=== PATIENT | female | born 1990 | race Caucasian/White ===

== ENCOUNTER 2021-10-14 12:54 | Emergency (ER) | payer OTHER ==
[~2021-10-14] VITALS: Ht 170.2 cm; Wt 81.8 kg
[2021-10-14] MEDS ORDERED: VENL25TA47 PO (13:08)
[2021-10-14] MEDS ORDERED: HYDR-3831 PO (13:08)
[2021-10-14] MEDS ORDERED: SODIUM CHLORIDE 0.9% 1,000 ML IV ONE (13:30)
[2021-10-14] MEDS ORDERED: HYDROmorphone 2 MG/ML VIAL IVP ONE ×2 (13:45→15:00)
[2021-10-14] MEDS ORDERED: METOCLOPRAMIDE HCL 5 MG/ML 2 ML VIAL IVP ONE (13:45)
[2021-10-14 13:50] LABS: ANION GAP 6 mmol/L (8-16); CALCIUM, TOTAL 9.1 mg/dL (8.8-10.5); CARBON DIOXIDE 30 mmol/L (22-29); CHLORIDE 104 mmol/L (98-107); GLUCOSE,RANDOM 140 mg/dL (70-110); POTASSIUM 4.1 mmol/L (3.5-5.1); SODIUM SERUM 140 mmol/L (136-145); UREA NITROGEN, BLOOD 10 mg/dL (7-18)
[2021-10-14 13:52] LABS: GLOMERULAR FILTR. RATE CALC > 60 mL/min (>60)
[2021-10-14 13:54] LABS: BASOPHILS % (AUTO) 0.3 % (0.0-2.0); EOSINOPHILS % (AUTO) 1.4 % (1.0-6.0); HEMATOCRIT 34.5 % (36-46); HEMOGLOBIN 11.7 g/dL (12.0-16.0); LYMPHOCYTES # (AUTO) 2.1 K/uL (1.0-4.8); MEAN CORPUSCULAR HEMOGLOBIN 28.4 pg (26.0-34.0); MEAN CORPUSCULAR HGB CONC 33.9 G/dL (31.0-37.0); MEAN CORPUSCULAR VOLUME 84 fL (80-100); MONOCYTES # (AUTO) 0.3 K/uL (0.1-1.0); MONOCYTES % (AUTO) 4.6 % (2.0-9.0); NEUTROPHILS # (AUTO) 4.1 K/uL (1.8-7.7); NEUTROPHILS % (AUTO) 61.7 % (40.0-70.0); PLATELET COUNT (AUTO) 300 K/uL (150-450); RED BLOOD CELL COUNT(AUTO) 4.12 MIL/uL (4.00-5.20); RED CELL DISTRIBUTION WIDTH 14.2 % (11.5-14.5)
[2021-10-14 14:03] LABS: ALANINE AMINOTRANSFERASE 25 U/L (12-78); ALBUMIN 3.6 g/dL (3.4-5.0); ALKALINE PHOSPHATASE 71 U/L (46-116); ASPARTATE AMINOTRANSFERASE 16 U/L (15-37); BILIRUBIN,TOTAL 0.4 mg/dL (0.1-1.0); HCG,QUANTITATIVE < 1 mIU/mL (0-6); LIPASE 73 U/L (73-393); TOTAL PROTEIN, SERUM 7.3 g/dL (6.4-8.2)
[2021-10-14] MEDS ORDERED: IOHEXOL 350 MG/ML 100 ML VIAL ONE (14:29)
[2021-10-14] MEDS ORDERED: SODIUM CHLORIDE 0.9% 100 ML ONE (14:30)
[2021-10-14 14:45] LABS: APPEARANCE,URINE CLEAR (CLEAR); BILIRUBIN,URINE NEGATIVE (NEGATIVE); GLUCOSE, URINE (UA) TRACE mg/dL (NEGATIVE); KETONES,URINE NEGATIVE (NEGATIVE); LEUKOCYTE ESTERASE ,URINE SMALL (NEGATIVE); NITRATE,URINE NEGATIVE (NEGATIVE); OCCULT BLOOD,URINE NEGATIVE (NEGATIVE); PH,URINE 5.5 (5.0-8.0); PROTEIN,URINE NEGATIVE (NEGATIVE); SPECIFIC GRAVITIY, URINE 1.013 (1.003-1.030); UROBILINOGEN,URINE <=1.0 mg/dL (<=1.0)
[2021-10-14 14:58] LABS: BACTERIA,URINE None Seen /HPF (None Seen); RBC,URINE None Seen /HPF (0-2); SQUAMOUS EPITHELIAL CELL,UR Few /LPF (None Seen); WBC,URINE 0-2 /HPF (0-5)
[2021-10-14 15:00] VITALS: BP 123/70
[2021-10-14] MEDS ORDERED: DICY20TA95 PO (16:30)
[2021-10-14] MEDS ORDERED: TRAM50TA2 PO (16:31)
== END 2021-10-14 16:53 | disposition home or self-care (01) ==
LOC: EMS 12:57
DX: E86.0 Dehydration (principal); R10.13 Epigastric pain; F41.9 Anxiety disorder, unspecified; F32.9 Major depressive disorder, single episode, unspecified; Z79.899 Other long term (current) drug therapy
CPT/HCPCS: 99285; 74177; 96374; 96361; 96375; 80053; 81001; 83690; 84702; 85025; 36415; 93005; 96376; J1170; J2765; Q9967; J7050

== ENCOUNTER 2021-10-25 17:43 | Emergency (ER) | payer OTHER ==
[~2021-10-25] VITALS: Ht 170.2 cm; Wt 81.8 kg
[~2021-10-25 17:43] MED LIST: DICY20TA95 PO; HYDR-3831 PO; TRAM50TA2 PO; VENL25TA47 PO
[2021-10-25] MEDS ORDERED: SODIUM CHLORIDE 0.9% 1,000 ML IV ONE (19:15)
[2021-10-25] MEDS ORDERED: KETOROLAC TROMETHAMINE 30 MG/ML VIAL IVP ONE (19:15)
[2021-10-25] MEDS ORDERED: ONDANSETRON HCL 4 MG/2 ML VIAL IVP ONE (19:15)
[2021-10-25 19:36] LABS: BASOPHILS % (AUTO) 0.3 % (0.0-2.0); EOSINOPHILS % (AUTO) 3.1 % (1.0-6.0); HEMATOCRIT 33.2 % (36-46); LYMPHOCYTES # (AUTO) 2.6 K/uL (1.0-4.8); LYMPHOCYTES % (AUTO) 32.1 % (22.0-44.0); MEAN CORPUSCULAR HGB CONC 33.1 G/dL (31.0-37.0); MEAN CORPUSCULAR VOLUME 85 fL (80-100); MONOCYTES # (AUTO) 0.5 K/uL (0.1-1.0); MONOCYTES % (AUTO) 5.8 % (2.0-9.0); NEUTROPHILS # (AUTO) 4.8 K/uL (1.8-7.7); NEUTROPHILS % (AUTO) 58.7 % (40.0-70.0); PLATELET COUNT (AUTO) 281 K/uL (150-450); RED BLOOD CELL COUNT(AUTO) 3.92 MIL/uL (4.00-5.20); RED CELL DISTRIBUTION WIDTH 14.4 % (11.5-14.5)
[2021-10-25 20:29] LABS: ANION GAP 9 mmol/L (8-16); CARBON DIOXIDE 25 mmol/L (22-29); CHLORIDE 104 mmol/L (98-107); CREATININE 0.83 mg/dL (0.60-1.30); GLUCOSE,RANDOM 107 mg/dL (70-110); POTASSIUM 4.7 mmol/L (3.5-5.1); SODIUM SERUM 138 mmol/L (136-145); UREA NITROGEN, BLOOD 18 mg/dL (7-18)
[2021-10-25 20:30] LABS: CALCIUM, TOTAL 8.8 mg/dL (8.8-10.5); GLOMERULAR FILTR. RATE CALC > 60 mL/min (>60)
[2021-10-25] MEDS ORDERED: MORPHINE SULFATE 2 MG/ML SYRINGE IVP ONE (20:30)
[2021-10-25 20:40] LABS: ALANINE AMINOTRANSFERASE 36 U/L (12-78); ALBUMIN 3.7 g/dL (3.4-5.0); ALKALINE PHOSPHATASE 69 U/L (46-116); ASPARTATE AMINOTRANSFERASE 35 U/L (15-37); BILIRUBIN,TOTAL 0.2 mg/dL (0.1-1.0); HCG,QUANTITATIVE < 1 mIU/mL (0-6); LIPASE 94 U/L (73-393); TOTAL PROTEIN, SERUM 7.5 g/dL (6.4-8.2)
[2021-10-25 21:01] VITALS: BP 133/68
== END 2021-10-25 21:10 | disposition home or self-care (01) ==
LOC: EMS 17:43
DX: G89.29 Other chronic pain (principal); R10.13 Epigastric pain; F32.9 Major depressive disorder, single episode, unspecified; F41.9 Anxiety disorder, unspecified; Z79.899 Other long term (current) drug therapy
CPT/HCPCS: 99284; 96374; 96375; 96361; 80053; 83690; 84702; 85025; 36415; J1885; J2270; J2405; J7030

== ENCOUNTER 2022-05-31 19:57 | Emergency (ER) | payer OTHER ==
[~2022-05-31] VITALS: Ht 170.2 cm; Wt 81.0 kg
[~2022-05-31 19:57] MED LIST changes: -DICY20TA95 PO; -TRAM50TA2 PO
[2022-05-31 20:07] VITALS: BP 122/79
[2022-05-31] MEDS ORDERED: VENL-68 PO (20:11)
[2022-05-31] MEDS ORDERED: VENL-67 PO (20:11)
[2022-05-31 20:29] LABS: BASOPHILS % (AUTO) 0.3 % (0.0-2.0); EOSINOPHILS % (AUTO) 1.7 % (1.0-6.0); HEMATOCRIT 32.9 % (36-46); HEMOGLOBIN 10.9 g/dL (12.0-16.0); LYMPHOCYTES # (AUTO) 2.3 K/uL (1.0-4.8); LYMPHOCYTES % (AUTO) 26.9 % (22.0-44.0); MEAN CORPUSCULAR HEMOGLOBIN 26.9 pg (26.0-34.0); MEAN CORPUSCULAR VOLUME 82 fL (80-100); MONOCYTES # (AUTO) 0.5 K/uL (0.1-1.0); NEUTROPHILS # (AUTO) 5.5 K/uL (1.8-7.7); NEUTROPHILS % (AUTO) 65.1 % (40.0-70.0); PLATELET COUNT (AUTO) 291 K/uL (150-450); RED BLOOD CELL COUNT(AUTO) 4.04 MIL/uL (4.00-5.20); RED CELL DISTRIBUTION WIDTH 15.3 % (11.5-14.5)
[2022-05-31 20:39] LABS: ANION GAP 7 mmol/L (8-16); CALCIUM, TOTAL 9.4 mg/dL (8.8-10.5); CARBON DIOXIDE 29 mmol/L (22-29); CHLORIDE 104 mmol/L (98-107); CREATININE 0.67 mg/dL (0.60-1.30); GLOMERULAR FILTR. RATE CALC > 60 mL/min (>60); GLUCOSE,RANDOM 108 mg/dL (70-110); POTASSIUM 4.2 mmol/L (3.5-5.1); SODIUM SERUM 140 mmol/L (136-145); UREA NITROGEN, BLOOD 10 mg/dL (7-18)
[2022-05-31 20:45] LABS: ALANINE AMINOTRANSFERASE 20 U/L (12-78); ALBUMIN 3.7 g/dL (3.4-5.0); ALKALINE PHOSPHATASE 77 U/L (46-116); ASPARTATE AMINOTRANSFERASE 14 U/L (15-37); BILIRUBIN,TOTAL 0.2 mg/dL (0.1-1.0); LIPASE 37 U/L (73-393); TOTAL PROTEIN, SERUM 7.4 g/dL (6.4-8.2)
[2022-05-31 21:47] LABS: HCG,QUANTITATIVE < 1 mIU/mL (0-6)
[2022-05-31] MEDS ORDERED: SODIUM CHLORIDE 0.9% 1,000 ML IV ONE (22:00)
[2022-05-31] MEDS ORDERED: FAMOTIDINE 40 MG in SODIUM CHLORIDE 0.9% 100 ML IV ONE (22:00)
[2022-05-31] MEDS ORDERED: METOCLOPRAMIDE HCL 5 MG/ML 2 ML VIAL IVP ONE (23:45)
[2022-05-31] MEDS ORDERED: MORPHINE SULFATE 4 MG/ML SYRINGE IVP ONE (23:45)
[2022-05-31] MEDS ORDERED: FAMO20 PO (23:47)
== END 2022-06-01 00:15 | disposition home or self-care (01) ==
LOC: EMS 19:58
DX: E86.0 Dehydration (principal); R10.84 Generalized abdominal pain; F41.9 Anxiety disorder, unspecified; F32.A Depression, unspecified; Z98.890 Other specified postprocedural states
CPT/HCPCS: 99285; 74176; 96365; 96375; 80053; 83690; 84702; 84703; 85025; J3490; J2765; J2270; J7050

== ENCOUNTER 2022-08-24 00:50 | Emergency (ER) | payer OTHER ==
[~2022-08-24] VITALS: Ht 170.2 cm; Wt 81.8 kg
[~2022-08-24 00:50] MED LIST changes: +FAMO20 PO; -HYDR-3831 PO; +VENL-67 PO; +VENL-68 PO; -VENL25TA47 PO
[2022-08-24 01:05] VITALS: BP 118/78; PULSE 127; RESP 20; TEMP 98.2
[2022-08-24] MEDS ORDERED: HYDR-4584 PO (01:12)
[2022-08-24] MEDS ORDERED: FLUO20CA36 PO (01:12)
[2022-08-24] MEDS ORDERED: ONDANSETRON HCL 4 MG/2 ML VIAL IVP ONE (01:30)
[2022-08-24] MEDS ORDERED: SODIUM CHLORIDE 0.9% 1,000 ML IV ONE (01:30)
[2022-08-24] MEDS ORDERED: KETOROLAC TROMETHAMINE 30 MG/ML VIAL IVP ONE (01:30)
[2022-08-24 01:41] LABS: BASOPHILS % (AUTO) 0.4 % (0.0-2.0); EOSINOPHILS % (AUTO) 2.8 % (1.0-6.0); HEMATOCRIT 30.4 % (36-46); HEMOGLOBIN 10.1 g/dL (12.0-16.0); LYMPHOCYTES # (AUTO) 2.9 K/uL (1.0-4.8); LYMPHOCYTES % (AUTO) 50.3 % (22.0-44.0); MEAN CORPUSCULAR HEMOGLOBIN 26.5 pg (26.0-34.0); MEAN CORPUSCULAR HGB CONC 33.1 G/dL (31.0-37.0); MEAN CORPUSCULAR VOLUME 80 fL (80-100); MONOCYTES # (AUTO) 0.4 K/uL (0.1-1.0); MONOCYTES % (AUTO) 7.1 % (2.0-9.0); NEUTROPHILS # (AUTO) 2.3 K/uL (1.8-7.7); NEUTROPHILS % (AUTO) 39.4 % (40.0-70.0); PLATELET COUNT (AUTO) 318 K/uL (150-450); RED CELL DISTRIBUTION WIDTH 17.3 % (11.5-14.5)
[2022-08-24 01:49] LABS: ANION GAP 10 mmol/L (8-16); CALCIUM, TOTAL 8.9 mg/dL (8.8-10.5); CARBON DIOXIDE 26 mmol/L (22-29); CHLORIDE 104 mmol/L (98-107); CREATININE 0.67 mg/dL (0.60-1.30); GLOMERULAR FILTR. RATE CALC > 60 mL/min (>60); GLUCOSE,RANDOM 96 mg/dL (70-110); POTASSIUM 3.9 mmol/L (3.5-5.1); SODIUM SERUM 140 mmol/L (136-145)
[2022-08-24 02:04] LABS: ALANINE AMINOTRANSFERASE 23 U/L (12-78); ALBUMIN 3.5 g/dL (3.4-5.0); ALKALINE PHOSPHATASE 78 U/L (46-116); ASPARTATE AMINOTRANSFERASE 18 U/L (15-37); BILIRUBIN,TOTAL 0.1 mg/dL (0.1-1.0); HCG,QUANTITATIVE < 1 mIU/mL (0-6); LIPASE 37 U/L (73-393); TOTAL PROTEIN, SERUM 7.3 g/dL (6.4-8.2)
== END 2022-08-24 02:17 | disposition left against medical advice (07) ==
LOC: EMS 00:53
DX: R10.31 Right lower quadrant pain (principal); F41.9 Anxiety disorder, unspecified; F32.A Depression, unspecified; I51.9 Heart disease, unspecified; K85.90 Acute pancreatitis without necrosis or infection, unspecified; F11.20 Opioid dependence, uncomplicated; G89.4 Chronic pain syndrome; Z98.84 Bariatric surgery status
CPT/HCPCS: 99284; 96374; 96361; 96375; 80053; 83690; 84702; 85025; 93005; J1885; J2405

== ENCOUNTER 2024-01-04 00:08 | Emergency (ER) | payer OTHER ==
[~2024-01-04] VITALS: Ht 170.2 cm; Wt 79.5 kg
[~2024-01-04 00:08] MED LIST changes: +FLUO-418 PO; +HYDR-4584 PO
[2024-01-04 01:47] LABS: BASOPHILS % (AUTO) 0.4 % (0.0-2.0); EOSINOPHILS % (AUTO) 3.4 % (1.0-6.0); HEMATOCRIT 31.8 % (36-46); HEMOGLOBIN 10.4 g/dL (12.0-16.0); LYMPHOCYTES # (AUTO) 3.4 K/uL (1.0-4.8); LYMPHOCYTES % (AUTO) 44.9 % (22.0-44.0); MEAN CORPUSCULAR HEMOGLOBIN 27.3 pg (26.0-34.0); MEAN CORPUSCULAR HGB CONC 32.7 G/dL (31.0-37.0); MEAN CORPUSCULAR VOLUME 84 fL (80-100); MONOCYTES # (AUTO) 0.4 K/uL (0.1-1.0); MONOCYTES % (AUTO) 5.1 % (2.0-9.0); NEUTROPHILS # (AUTO) 3.5 K/uL (1.8-7.7); NEUTROPHILS % (AUTO) 46.2 % (40.0-70.0); PLATELET COUNT (AUTO) 295 K/uL (150-450); RED CELL DISTRIBUTION WIDTH 16.6 % (11.5-14.5); WHITE BLOOD COUNT (AUTO) 7.5 K/uL (4.5-11.0)
[2024-01-04] MEDS: SODIUM CHLORIDE 0.9% 1,000 ML IV ONE (02:11)
[2024-01-04] MEDS: MORPHINE SULFATE 2 MG/ML SYRINGE IVP ONE ×2 (02:22→04:30)
[2024-01-04] MEDS ORDERED: IBUP-1492 PO (03:11)
[2024-01-04 04:00] VITALS: BP 145/88; PULSE 72; RESP 18; TEMP 98.3; O2SAT 100
[2024-01-04] MEDS: KETOROLAC TROMETHAMINE 30 MG/ML VIAL IVP ONE (04:30)
[2024-01-04] MEDS: ONDANSETRON HCL 4 MG/2 ML VIAL IVP ONE (04:30)
== END 2024-01-04 04:30 | disposition home or self-care (01) ==
LOC: EMS 00:08
DX: O02.1 Missed abortion (principal); Z3A.01 Less than 8 weeks gestation of pregnancy; F32.A Depression, unspecified; F41.9 Anxiety disorder, unspecified; Z98.84 Bariatric surgery status; Z79.899 Other long term (current) drug therapy
CPT/HCPCS: 99285; 96374; 76801; 96375; 96361; 84702; 85025; 86901; 36415; 96376; J1885; J2270; J2405; J7030

== ENCOUNTER 2024-01-06 03:34 | Emergency (ER) | payer OTHER ==
[~2024-01-06] VITALS: Ht 170.2 cm; Wt 79.5 kg
[~2024-01-06 03:34] MED LIST changes: +IBUP-1492 PO
[2024-01-06 03:40] VITALS: TEMP 97.8
[2024-01-06 05:14] LABS: BASOPHILS % (AUTO) 0.5 % (0.0-2.0); EOSINOPHILS % (AUTO) 3.2 % (1.0-6.0); HEMATOCRIT 32.1 % (36-46); HEMOGLOBIN 10.3 g/dL (12.0-16.0); LYMPHOCYTES # (AUTO) 2.7 K/uL (1.0-4.8); LYMPHOCYTES % (AUTO) 47.9 % (22.0-44.0); MEAN CORPUSCULAR HGB CONC 32.2 G/dL (31.0-37.0); MEAN CORPUSCULAR VOLUME 84 fL (80-100); MONOCYTES # (AUTO) 0.4 K/uL (0.1-1.0); MONOCYTES % (AUTO) 7.1 % (2.0-9.0); NEUTROPHILS # (AUTO) 2.3 K/uL (1.8-7.7); NEUTROPHILS % (AUTO) 41.3 % (40.0-70.0); PLATELET COUNT (AUTO) 265 K/uL (150-450); RED BLOOD CELL COUNT(AUTO) 3.83 MIL/uL (4.00-5.20); RED CELL DISTRIBUTION WIDTH 16.7 % (11.5-14.5); WHITE BLOOD COUNT (AUTO) 5.7 K/uL (4.5-11.0)
[2024-01-06] MEDS: MORPHINE SULFATE 2 MG/ML SYRINGE IVP ONE ×2 (05:20→06:34)
[2024-01-06] MEDS: SODIUM CHLORIDE 0.9% 1,000 ML IV ONE (05:20)
[2024-01-06 05:36] LABS: APPEARANCE,URINE HAZY (CLEAR); BILIRUBIN,URINE NEGATIVE (NEGATIVE); COLOR,URINE LIGHT YELLOW (YELLOW); GLUCOSE, URINE (UA) NEGATIVE (NEGATIVE); KETONES,URINE NEGATIVE (NEGATIVE); LEUKOCYTE ESTERASE ,URINE LARGE (NEGATIVE); NITRATE,URINE NEGATIVE (NEGATIVE); OCCULT BLOOD,URINE NEGATIVE (NEGATIVE); PH,URINE 5.5 (5.0-8.0); PROTEIN,URINE NEGATIVE (NEGATIVE); SPECIFIC GRAVITIY, URINE 1.009 (1.003-1.030); UROBILINOGEN,URINE <=1.0 mg/dL (<=1.0)
[2024-01-06 05:41] LABS: ANION GAP 5 mmol/L (8-16); CALCIUM, TOTAL 8.2 mg/dL (8.8-10.5); CARBON DIOXIDE 29 mmol/L (22-29); CHLORIDE 106 mmol/L (98-107); CREATININE 0.62 mg/dL (0.60-1.30); GLOMERULAR FILTR. RATE CALC > 60 mL/min (>60); GLUCOSE,RANDOM 92 mg/dL (70-110); POTASSIUM 3.8 mmol/L (3.5-5.1); SODIUM SERUM 140 mmol/L (136-145); UREA NITROGEN, BLOOD 11 mg/dL (7-18)
[2024-01-06 05:48] LABS: ALANINE AMINOTRANSFERASE 50 U/L (12-78); ALBUMIN 3.5 g/dL (3.4-5.0); ALKALINE PHOSPHATASE 72 U/L (46-116); ASPARTATE AMINOTRANSFERASE 20 U/L (15-37); BILIRUBIN,TOTAL 0.2 mg/dL (0.1-1.0); LIPASE 22 U/L (16-77); TOTAL PROTEIN, SERUM 7.1 g/dL (6.4-8.2)
[2024-01-06 05:50] LABS: BACTERIA,URINE Moderate /HPF (None Seen); RBC,URINE 0-2 /HPF (0-2); SQUAMOUS EPITHELIAL CELL,UR Moderate /LPF (None Seen)
[2024-01-06] MEDS ORDERED: CEPH-558 PO (06:12)
[2024-01-06 06:18] LABS: HCG,QUANTITATIVE < 1 mIU/mL (0-6)
[2024-01-06] MEDS: CEPHALEXIN MONOHYDRATE 500 MG CAPSULE PO ONE (06:34)
[2024-01-06 07:10] VITALS: BP 120/71; PULSE 69; RESP 16; O2SAT 99
[2024-01-06] MEDS ORDERED: MORP15TA70 PO (07:23)
== END 2024-01-06 07:36 | disposition home or self-care (01) ==
LOC: EMS 03:35
DX: N39.0 Urinary tract infection, site not specified (principal); R10.9 Unspecified abdominal pain; F41.9 Anxiety disorder, unspecified; Z87.19 Personal history of other diseases of the digestive system; Z87.440 Personal history of urinary (tract) infections; Z98.84 Bariatric surgery status; Z79.899 Other long term (current) drug therapy
CPT/HCPCS: 74176; 80048; 80076; 81001; 83690; 84702; 85025; 87086; 96361; 96374; 96376; 99285; J2270; J7030; 36415-L1; 36415-TC

== ENCOUNTER 2024-01-19 03:55 | Emergency (ER) | payer OTHER ==
[~2024-01-19] VITALS: Ht 170.2 cm; Wt 79.5 kg
[~2024-01-19 03:55] MED LIST changes: +CEPH-558 PO; +MORP15TA70 PO
[2024-01-19 04:01] VITALS: BP 108/71; PULSE 83; RESP 18; TEMP 97.9; O2SAT 99
[2024-01-19 04:37] LABS: BASOPHILS % (AUTO) 0.4 % (0.0-2.0); EOSINOPHILS % (AUTO) 2.7 % (1.0-6.0); HEMATOCRIT 32.1 % (36-46); HEMOGLOBIN 10.5 g/dL (12.0-16.0); LYMPHOCYTES # (AUTO) 1.5 K/uL (1.0-4.8); LYMPHOCYTES % (AUTO) 37.2 % (22.0-44.0); MEAN CORPUSCULAR HEMOGLOBIN 26.6 pg (26.0-34.0); MEAN CORPUSCULAR HGB CONC 32.7 G/dL (31.0-37.0); MEAN CORPUSCULAR VOLUME 81 fL (80-100); MONOCYTES # (AUTO) 0.2 K/uL (0.1-1.0); MONOCYTES % (AUTO) 5.6 % (2.0-9.0); NEUTROPHILS # (AUTO) 2.2 K/uL (1.8-7.7); NEUTROPHILS % (AUTO) 54.1 % (40.0-70.0); PLATELET COUNT (AUTO) 246 K/uL (150-450); RED BLOOD CELL COUNT(AUTO) 3.96 MIL/uL (4.00-5.20); RED CELL DISTRIBUTION WIDTH 16.2 % (11.5-14.5); WHITE BLOOD COUNT (AUTO) 4.1 K/uL (4.5-11.0)
[2024-01-19] MEDS: ONDANSETRON HCL 4 MG/2 ML VIAL IVP ONE (04:45)
[2024-01-19] MEDS: SODIUM CHLORIDE 0.9% 1,000 ML IV ONE (04:46)
[2024-01-19] MEDS: KETOROLAC TROMETHAMINE 30 MG/ML VIAL IVP ONE (04:46)
[2024-01-19 04:55] LABS: ANION GAP 7 mmol/L (8-16); CALCIUM, TOTAL 8.6 mg/dL (8.8-10.5); CARBON DIOXIDE 26 mmol/L (22-29); CHLORIDE 103 mmol/L (98-107); CREATININE 0.56 mg/dL (0.60-1.30); GLOMERULAR FILTR. RATE CALC > 60 mL/min (>60); GLUCOSE,RANDOM 122 mg/dL (70-110); LIPASE 22 U/L (16-77); POTASSIUM 4.7 mmol/L (3.5-5.1); SODIUM SERUM 136 mmol/L (136-145); UREA NITROGEN, BLOOD 10 mg/dL (7-18)
[2024-01-19] MEDS ORDERED: MORPHINE SULFATE 10 MG/ML VIAL IVP ONE (05:00)
[2024-01-19] MEDS: MORPHINE SULFATE 4 MG/ML SYRINGE IVP ONE (05:04)
[2024-01-19] MEDS ORDERED: POLY119P3 PO (05:33)
[2024-01-19] MEDS ORDERED: NITR-75 PO (05:33)
[2024-01-19] MEDS ORDERED: HYDR-4062 PO (05:33)
== END 2024-01-19 05:53 | disposition home or self-care (01) ==
LOC: EMS 03:55
DX: N94.6 Dysmenorrhea, unspecified (principal); R10.2 Pelvic and perineal pain; K59.00 Constipation, unspecified; K21.9 Gastro-esophageal reflux disease without esophagitis; R07.89 Other chest pain; F32.A Depression, unspecified; F41.9 Anxiety disorder, unspecified; Z98.84 Bariatric surgery status; Z79.899 Other long term (current) drug therapy
CPT/HCPCS: 99284; 96374; 96375; 96361; 80048; 83690; 84703; 85025; 36415; J1885; J2270; J2405; J7030

== ENCOUNTER 2024-03-05 01:42 | Emergency (ER) | payer OTHER ==
[~2024-03-05] VITALS: Ht 170.2 cm; Wt 72.7 kg
[~2024-03-05 01:42] MED LIST changes: +HYDR-4062 PO; +NITR-75 PO; +POLY119P3 PO
[2024-03-05 02:00] VITALS: BP 121/83; PULSE 83; RESP 18; TEMP 97.8; O2SAT 99
[2024-03-05 02:51] LABS: APPEARANCE,URINE HAZY (CLEAR); BASOPHILS % (AUTO) 0.3 % (0.0-2.0); BILIRUBIN,URINE NEGATIVE (NEGATIVE); COLOR,URINE LIGHT ORANGE (YELLOW); EOSINOPHILS % (AUTO) 1.4 % (1.0-6.0); GLUCOSE, URINE (UA) NEGATIVE (NEGATIVE); HEMATOCRIT 35.5 % (36-46); HEMOGLOBIN 11.4 g/dL (12.0-16.0); KETONES,URINE NEGATIVE (NEGATIVE); LEUKOCYTE ESTERASE ,URINE SMALL (NEGATIVE); LYMPHOCYTES # (AUTO) 3.1 K/uL (1.0-4.8); LYMPHOCYTES % (AUTO) 41.4 % (22.0-44.0); MEAN CORPUSCULAR HEMOGLOBIN 25.8 pg (26.0-34.0); MEAN CORPUSCULAR HGB CONC 32.2 G/dL (31.0-37.0); MEAN CORPUSCULAR VOLUME 80 fL (80-100); MONOCYTES # (AUTO) 0.5 K/uL (0.1-1.0); MONOCYTES % (AUTO) 6.5 % (2.0-9.0); NEUTROPHILS # (AUTO) 3.8 K/uL (1.8-7.7); NEUTROPHILS % (AUTO) 50.4 % (40.0-70.0); NITRATE,URINE NEGATIVE (NEGATIVE); OCCULT BLOOD,URINE LARGE (NEGATIVE); PH,URINE 5.5 (5.0-8.0); PLATELET COUNT (AUTO) 287 K/uL (150-450); PROTEIN,URINE 30-70 mg/dL (NEGATIVE); RED BLOOD CELL COUNT(AUTO) 4.42 MIL/uL (4.00-5.20); RED CELL DISTRIBUTION WIDTH 16.9 % (11.5-14.5); SPECIFIC GRAVITIY, URINE 1.021 (1.003-1.030); WHITE BLOOD COUNT (AUTO) 7.5 K/uL (4.5-11.0)
[2024-03-05 03:00] LABS: ANION GAP 9 mmol/L (8-16); CALCIUM, TOTAL 8.5 mg/dL (8.8-10.5); CARBON DIOXIDE 27 mmol/L (22-29); CHLORIDE 106 mmol/L (98-107); CREATININE 0.68 mg/dL (0.60-1.30); GLOMERULAR FILTR. RATE CALC > 60 mL/min (>60); GLUCOSE,RANDOM 80 mg/dL (70-110); POTASSIUM 3.5 mmol/L (3.5-5.1); SODIUM SERUM 142 mmol/L (136-145); UREA NITROGEN, BLOOD 10 mg/dL (7-18)
[2024-03-05 03:02] LABS: BACTERIA,URINE Rare /HPF (None Seen); SQUAMOUS EPITHELIAL CELL,UR Few /LPF (None Seen)
[2024-03-05] MEDS: KETOROLAC TROMETHAMINE 30 MG/ML VIAL IVP ONE (03:05)
[2024-03-05] MEDS: SODIUM CHLORIDE 0.9% 1,000 ML IV ONE (03:05)
[2024-03-05] MEDS: ONDANSETRON HCL 4 MG/2 ML VIAL IVP ONE (03:06)
[2024-03-05 03:08] LABS: TROPONIN I-HIGH SENSITIVITY 4 ng/L (<51)
[2024-03-05 03:11] LABS: ALANINE AMINOTRANSFERASE 23 U/L (12-78); ALBUMIN 3.7 g/dL (3.4-5.0); ALKALINE PHOSPHATASE 98 U/L (46-116); ASPARTATE AMINOTRANSFERASE 19 U/L (15-37); BILIRUBIN,TOTAL 0.3 mg/dL (0.1-1.0); HCG,QUANTITATIVE < 1 mIU/mL (0-6); LIPASE 22 U/L (16-77); TOTAL PROTEIN, SERUM 7.1 g/dL (6.4-8.2)
== END 2024-03-05 03:12 | disposition left against medical advice (07) ==
LOC: EMS 01:42
DX: R10.13 Epigastric pain (principal); G89.29 Other chronic pain; R11.0 Nausea; F32.A Depression, unspecified; F41.9 Anxiety disorder, unspecified; Z79.899 Other long term (current) drug therapy
CPT/HCPCS: 71045; 80048; 80076; 81001; 83690; 84484; 84702; 85025; 93005; 99285; J1885; J2405; J7030; 36415-L1; 36415-TC

== ENCOUNTER 2024-03-11 03:59 | Emergency (ER) | payer OTHER ==
[~2024-03-11] VITALS: Ht 170.2 cm; Wt 72.7 kg
[2024-03-11 06:54] LABS: BASOPHILS % (AUTO) 0.3 % (0.0-2.0); HEMOGLOBIN 11.3 g/dL (12.0-16.0); LYMPHOCYTES # (AUTO) 1.9 K/uL (1.0-4.8); LYMPHOCYTES % (AUTO) 27.6 % (22.0-44.0); MEAN CORPUSCULAR HEMOGLOBIN 26.7 pg (26.0-34.0); MEAN CORPUSCULAR HGB CONC 33.3 G/dL (31.0-37.0); MEAN CORPUSCULAR VOLUME 80 fL (80-100); MONOCYTES # (AUTO) 0.3 K/uL (0.1-1.0); MONOCYTES % (AUTO) 4.8 % (2.0-9.0); NEUTROPHILS # (AUTO) 4.6 K/uL (1.8-7.7); NEUTROPHILS % (AUTO) 66.3 % (40.0-70.0); PLATELET COUNT (AUTO) 283 K/uL (150-450); RED BLOOD CELL COUNT(AUTO) 4.24 MIL/uL (4.00-5.20); RED CELL DISTRIBUTION WIDTH 17.1 % (11.5-14.5)
[2024-03-11] MEDS: SODIUM CHLORIDE 0.9% 1,000 ML IV ONE (07:00)
[2024-03-11] MEDS: ONDANSETRON HCL 4 MG/2 ML VIAL IVP ONE (07:00)
[2024-03-11 07:02] LABS: ANION GAP 6 mmol/L (8-16); CALCIUM, TOTAL 8.7 mg/dL (8.8-10.5); CARBON DIOXIDE 29 mmol/L (22-29); CHLORIDE 104 mmol/L (98-107); CREATININE 0.75 mg/dL (0.60-1.30); GLOMERULAR FILTR. RATE CALC > 60 mL/min (>60); GLUCOSE,RANDOM 122 mg/dL (70-110); POTASSIUM 3.8 mmol/L (3.5-5.1); SODIUM SERUM 139 mmol/L (136-145); UREA NITROGEN, BLOOD 10 mg/dL (7-18)
[2024-03-11 07:11] LABS: TROPONIN I-HIGH SENSITIVITY Less Than 4 ng/L (<51)
[2024-03-11 07:19] VITALS: BP 127/83; PULSE 97; RESP 14; TEMP 97.7; O2SAT 100
[2024-03-11 07:25] LABS: ALANINE AMINOTRANSFERASE 25 U/L (12-78); ALBUMIN 3.7 g/dL (3.4-5.0); ALKALINE PHOSPHATASE 103 U/L (46-116); ASPARTATE AMINOTRANSFERASE 16 U/L (15-37); BILIRUBIN,TOTAL 0.3 mg/dL (0.1-1.0); HCG,QUANTITATIVE < 1 mIU/mL (0-6); LIPASE 24 U/L (16-77); TOTAL PROTEIN, SERUM 7.2 g/dL (6.4-8.2)
== END 2024-03-11 08:26 | disposition left against medical advice (07) ==
LOC: EMS 04:01
DX: R55 Syncope and collapse (principal); R51.9 Headache, unspecified; M54.2 Cervicalgia; F41.9 Anxiety disorder, unspecified; F32.A Depression, unspecified; Z98.84 Bariatric surgery status; Z79.899 Other long term (current) drug therapy
CPT/HCPCS: 99285; 96374; 71045; 96361; 80048; 80076; 83690; 84484; 84702; 85025; 36415; 82962; 93005; J2405; J7030

== ENCOUNTER 2024-12-16 07:41 | Emergency (ER) | payer OTHER ==
[~2024-12-16] VITALS: Ht 170.2 cm; Wt 79.5 kg
[~2024-12-16 07:41] MED LIST changes: -CEPH-558 PO; -HYDR-4584 PO; +HYDR-5256 PO; -IBUP-1492 PO; -MORP15TA70 PO; -NITR-75 PO; +ONDA-104 PO; +PANT-31 PO
[2024-12-16 07:57] LABS: COVID AG,FIA SOURCE NASAL SWAB
[2024-12-16] MEDS: SODIUM CHLORIDE 0.9% 1,000 ML IV ONE (08:15)
[2024-12-16] MEDS: ONDANSETRON HCL 4 MG/2 ML VIAL IVP ONE (08:15)
[2024-12-16 08:18] LABS: PLATELET COUNT (AUTO) 258 K/uL (150-450); RED BLOOD CELL COUNT(AUTO) 4.51 MIL/uL (4.00-5.20); RED CELL DISTRIBUTION WIDTH 16.6 % (11.5-14.5); WHITE BLOOD COUNT (AUTO) 5.3 K/uL (4.5-11.0)
[2024-12-16 08:25] LABS: CALCIUM, TOTAL 8.8 mg/dL (8.8-10.5); CREATININE 0.77 mg/dL (0.60-1.30); GLOMERULAR FILTR. RATE CALC > 60 mL/min (>60); GLUCOSE,RANDOM 169 mg/dL (70-110); SODIUM SERUM 137 mmol/L (136-145); UREA NITROGEN, BLOOD 9 mg/dL (7-18)
[2024-12-16 08:54] LABS: SARS-COV2 (COVID) ANTIGEN,FIA Negative (Negative)
[2024-12-16] MEDS: PB/HYOSCY/ATR/SCOP/LIDO/MAALOX 55 ML BOTTLE PO ONE (09:03)
[2024-12-16 09:40] VITALS: BP 128/77; PULSE 95; RESP 19; TEMP 98; O2SAT 99
[2024-12-16 09:42] LABS: INFLUENZA TYPE A NEGATIVE FOR TYPE A (NEGATIVE); INFLUENZA TYPE B NEGATIVE FOR TYPE B (NEGATIVE)
[2024-12-16] MEDS ORDERED: ONDA-104 PO (10:14)
[2024-12-16] MEDS ORDERED: IBUP-1554 PO (10:14)
[2024-12-16] MEDS ORDERED: HYDR-4062 PO (10:14)
[2024-12-16] MEDS ORDERED: GUAIFDM PO (10:14)
== END 2024-12-16 10:36 | disposition home or self-care (01) ==
LOC: EMS 07:46
DX: R51.9 Headache, unspecified (principal); J06.9 Acute upper respiratory infection, unspecified; F32.A Depression, unspecified; F41.9 Anxiety disorder, unspecified; Z98.84 Bariatric surgery status; Z87.19 Personal history of other diseases of the digestive system; Z82.3 Family history of stroke; Z79.899 Other long term (current) drug therapy; Z20.822 Contact with and (suspected) exposure to COVID-19
CPT/HCPCS: 99285; 96374; 70450; 96361; 96375; 87426; 80048; 83690; 84703; 85025; 87804; 36415; 96376; J1171; J2405; J7030

== ENCOUNTER 2025-01-29 04:15 | Emergency (ER) | payer OTHER ==
[~2025-01-29] VITALS: Ht 170.2 cm; Wt 77.3 kg
[~2025-01-29 04:15] MED LIST changes: -FLUO-418 PO; +GUAIFDM PO; -HYDR-5256 PO; +IBUP-1554 PO; -PANT-31 PO; -POLY119P3 PO; -VENL-67 PO
[2025-01-29 04:20] VITALS: TEMP 98.4
[2025-01-29 05:33] LABS: PLATELET COUNT (AUTO) 268 K/uL (150-450); RED BLOOD CELL COUNT(AUTO) 4.49 MIL/uL (4.00-5.20); RED CELL DISTRIBUTION WIDTH 14.9 % (11.5-14.5); WHITE BLOOD COUNT (AUTO) 5.3 K/uL (4.5-11.0)
[2025-01-29] MEDS: KETOROLAC TROMETHAMINE 30 MG/ML VIAL IVP ONE (05:45)
[2025-01-29] MEDS: ONDANSETRON HCL 4 MG/2 ML VIAL IVP ONE (05:45)
[2025-01-29] MEDS: SODIUM CHLORIDE 0.9% 1,000 ML IV ONE (05:45)
[2025-01-29 05:59] LABS: CALCIUM, TOTAL 9.2 mg/dL (8.8-10.5); CREATININE 0.69 mg/dL (0.60-1.30); GLOMERULAR FILTR. RATE CALC > 60 mL/min (>60); GLUCOSE,RANDOM 133 mg/dL (70-110); SODIUM SERUM 138 mmol/L (136-145); UREA NITROGEN, BLOOD 11 mg/dL (7-18)
[2025-01-29 06:04] LABS: ASPARTATE AMINOTRANSFERASE 13.0 U/L (15-37); TOTAL PROTEIN, SERUM 7.7 g/dL (6.4-8.2)
[2025-01-29 06:10] LABS: HCG,QUANTITATIVE < 1 mIU/mL (0-6)
[2025-01-29] MEDS: FAMOTIDINE 20 MG/2 ML VIAL IVP ONE (06:42)
[2025-01-29] MEDS: MORPHINE SULFATE 2 MG/ML SYRINGE IVP ONE (06:43)
[2025-01-29 06:56] LABS: APPEARANCE,URINE CLEAR (CLEAR); GLUCOSE, URINE (UA) NEGATIVE (NEGATIVE); LEUKOCYTE ESTERASE ,URINE MODERATE (NEGATIVE); NITRATE,URINE NEGATIVE (NEGATIVE); OCCULT BLOOD,URINE NEGATIVE (NEGATIVE); SPECIFIC GRAVITIY, URINE 1.009 (1.003-1.030)
[2025-01-29 06:56] LABS: TROPONIN I-HIGH SENSITIVITY Less Than 4 ng/L (<51)
[2025-01-29] MEDS ORDERED: PERCT PO (07:03)
[2025-01-29] MEDS ORDERED: FAMO20 PO (07:03)
[2025-01-29] MEDS ORDERED: ONDA-104 PO (07:03)
[2025-01-29 07:16] LABS: SQUAMOUS EPITHELIAL CELL,UR Few /LPF (None Seen)
[2025-01-29] MEDS: CefTRIAXone 1 GM/DEXTROSE 50 ML IV ONE (07:39)
[2025-01-29 08:02] VITALS: BP 114/71; PULSE 97; RESP 18; O2SAT 98
== END 2025-01-29 08:04 | disposition home or self-care (01) ==
LOC: EMS 04:16
DX: R10.84 Generalized abdominal pain (principal); F32.A Depression, unspecified; F41.9 Anxiety disorder, unspecified; G89.4 Chronic pain syndrome; F11.20 Opioid dependence, uncomplicated; Z87.19 Personal history of other diseases of the digestive system; Z98.84 Bariatric surgery status; Z79.899 Other long term (current) drug therapy
CPT/HCPCS: 99285; 96365; 96375; 71045; 96361; 80048; 80076; 81001; 83690; 83880; 84484; 84702; 85025; 36415; 93005; J1885; J0696; J3490; J2270; J2405; J7030